=== PATIENT | female | born 1940 | race Caucasian/White ===

== ENCOUNTER 2019-10-30 10:11 | Outpatient (CLI) | payer MEDICARE, OTHER | END 2019-10-30 10:12 | disposition EMS.NT | LOC: EMS 10:11 | PROVIDERS: ATTEND Surgery | DX: R10.32 Left lower quadrant pain (principal); W06.XXXA Fall from bed, initial encounter; Y92.032 Bedroom in apartment as the place of occurrence of the external cause ==